=== PATIENT | female | born 1945 | race Caucasian/White ===

== ENCOUNTER → 2017-01-31 | Outpatient (CLI) | payer OTHER | LOC: BHFA 14:00 | PROVIDERS: ATTEND Internal Medicine | DX: R09.89 Other specified symptoms and signs involving the circulatory and respiratory systems (principal); I10 Essential (primary) hypertension; E78.5 Hyperlipidemia, unspecified ==

== ENCOUNTER → 2017-02-23 | Outpatient (CLI) | payer OTHER ==
[~2017-02-23] MED LIST: GADOBUTROL 10 ML VIAL IVP ONE
== END ==
LOC: FIMAGING 11:59
PROVIDERS: ATTEND Internal Medicine Cardiovascular Disease
DX: I65.23 Occlusion and stenosis of bilateral carotid arteries (principal); N18.9 Chronic kidney disease, unspecified; R93.8 Abnormal findings on diagnostic imaging of other specified body structures
CPT/HCPCS: 70548; A9585

== ENCOUNTER → 2017-05-02 | Outpatient (CLI) | payer OTHER | LOC: FIMAGING 14:57 | PROVIDERS: ATTEND Family Medicine | DX: Z12.31 Encounter for screening mammogram for malignant neoplasm of breast (principal) | CPT/HCPCS: G0202 ==

== ENCOUNTER → 2017-05-10 | Outpatient (CLI) | payer OTHER | LOC: BHFA 10:00 | PROVIDERS: ATTEND Internal Medicine Cardiovascular Disease | DX: R06.02 Shortness of breath (principal); I73.9 Peripheral vascular disease, unspecified ==

== ENCOUNTER → 2017-06-29 | Outpatient (CLI) | payer OTHER | LOC: BHFA 09:30 | PROVIDERS: ATTEND Internal Medicine Cardiovascular Disease | DX: R06.02 Shortness of breath (principal); I73.9 Peripheral vascular disease, unspecified | CPT/HCPCS: 78452; 93017; A9500 ==

== ENCOUNTER → 2018-01-19 | Outpatient (CLI) | payer OTHER | LOC: FIMAGING 10:31 | PROVIDERS: ATTEND Surgery | DX: E21.0 Primary hyperparathyroidism (principal) | CPT/HCPCS: 78070; A9500; A9516 ==

== ENCOUNTER → 2018-05-04 | Outpatient (CLI) | payer OTHER | LOC: FIMAGING 09:36 | PROVIDERS: ATTEND Family Medicine | DX: Z12.31 Encounter for screening mammogram for malignant neoplasm of breast (principal) ==

== ENCOUNTER 2018-07-22 17:02 | Emergency (ER) | payer OTHER ==
--- NOTE | 2018-07-22 17:42 | EDPHY ---
H & P Time Seen by Provider: 07/22/18 17:35 HPI/ROS: Chief complaint. Abdomen and back pain HPI. Patient is 72-year-old female who has had several days of pain in the left lower extremity. It initially started in thigh down to her dorsum of her left foot. It now radiates to the left hip and left back in the lumbar area. Symptoms initially began July 12. She feels she has some leg weakness with standing. Her leg occasional Ifeanyi feels like it throbs. However she has no swelling. She has no chest pain or shortness of breath. She has inadequate relief with Tylenol. She has some low back pain when she rolls over in bed. No fever. No abdominal pain. Slight URI symptoms. No urinary symptoms. Patient had a kidney transplant in February 2015. No bowel or bladder symptoms ROS 10 systems were reviewed and negative with the exception of the elements mentioned in the history of present illness Past Medical/Surgical History: Hypertension, dyslipidemia, reactive airway disease, kidney disease status post kidney transplant, leg cramps, diverticulosis Social History: Divorce, nonsmoker, no alcohol Smoking Status: Former smoker Physical Exam: General Appearance: Alert well-developed female mild distress vital signs are stable Eyes: Pupils equal and round no pallor or injection. ENT, Mouth: Mucous membranes are moist. Respiratory: There are no retractions, lungs are clear to auscultation. Cardiovascular: Regular rate and rhythm. Gastrointestinal: Abdomen is soft and nontender, no masses, bowel sounds normal. Neurological: Awake and alert, sensory and motor exams grossly normal. Straight leg raising is normal at 30 degrees bilaterally. Deep tendon reflexes are symmetrical. Great toe strength is normal Skin: Warm and dry, no rashes. Musculoskeletal: Neck is supple nontender. Mild tenderness to the left-sided lumbar spine and left buttock. No evidence of surface trauma. No tenderness over the lumbar spine. Extremities symmetrical, full range of motion. No swelling. Pulses are symmetrical Psychiatric: Patient is oriented X 3, there is no agitation. Constitutional: Initial Vital Signs Temperature (C) 37.1 C 07/22/18 17:18 Heart Rate 84 07/22/18 17:18 Respiratory Rate 16 07/22/18 17:18 Blood Pressure 131/66 H 07/22/18 17:18 O2 Sat (%) 94 07/22/18 17:18 O2 Delivery Mode Room Air Allergies/Adverse Reactions: Metronidazole HCl [From Flagyl] Allergy (Mild, Verified 07/22/18 17:23) NAUSEA codeine Allergy (Verified 07/22/18 17:23) Sulfa (Sulfonamide Antibiotics) Allergy (Verified 07/22/18 17:23) Home Medications: Medication Instructions Recorded Acetaminophen [Tylenol ES 500 mg 500 mg PO Q6 PRN 06/23/15 (*)] Albuterol [Proventil Inhaler HFA 2 puffs IH Q4 PRN 06/23/15 (*)] Atorvastatin Calcium [Lipitor 40 40 mg PO HS 06/23/15 mg (*)] Bifidobacterium Infantis [Align] 4 mg PO DAILY 06/23/15 Cholecalciferol Vit D3 [Vitamin D3 2,000 units PO DAILY 06/23/15 2000 units] Dapsone [Dapsone 100 mg (*)] 100 mg PO DAILY 06/23/15 Multivitamins [Multivitamin (*)] 1 each PO DAILY 06/23/15 Mycophenolate Sodium [Myfortic] 360 mg PO DAILY@08 06/23/15 Mycophenolate Sodium [Myfortic] 720 mg PO DAILY@20 06/23/15 [place]-3 Ethyl Est-Lovaza [Lovaza 1 1 gm PO DAILY 06/23/15 gm (*)] Tacrolimus 1 mg PO DAILY 06/23/15 Tacrolimus 2 mg PO HS 06/23/15 predniSONE 5 mg PO DAILY 06/23/15 Cefdinir [Omnicef (*)] 300 mg PO BID #10 cap 06/29/15 Doxycycline Hyclate [Vibramycin 100 mg PO BID #11 capsule 06/29/15 100 MG (*)] Cephalexin [Keflex (*)] 500 mg PO TID #17 cap 07/22/18 Hydrocodone/APAP 5/325 [Tony 1 each PO Q4-6PRN PRN #10 tab 07/22/18 5/325 (*)] Medical Decision Making - Diagnostics Imaging Results: Imaging Impressions Lumbar Spine MRI 07/22/18 17:57 Impression: 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 Level of most severe neural foraminal narrowing is at L5-S1 with severe bilateral neural foraminal narrowing, left greater than right. Levels of more moderate central spinal canal or neural foraminal narrowing are at L3-L4 and L4- L5. Please see detailed description by level above. Results called and discussed with Cuauhtemoc Wu MD on July 22, 2018 at 1852 hours. MRI shows no evidence of cauda equina syndrome. She does have some bulging discs and some neuroforaminal stenosis. Findings appear to be by necessarily focal to the left side. Procedures: IV normal saline Urine sent for culture sensitivity Take home meds hydrocodone and cephalexin ED Course/Re-evaluation: Re-evaluation 7:15 p.m. Patient and I discussed laboratory evaluation an MRI results. She and I discussed treatment plan including criteria for return importance of follow-up and further evaluation. She expresses understanding and agreement Differential Diagnosis: Certainly her leg pain and low back pain sound like sciatica. No significant left-sided findings but findings are more bilateral. She does have a urinary tract infection. She has had a kidney transplant but has completely normal kidney function. There is no evidence for cauda equina syndrome. - Data Points Laboratory Results: Laboratory Results 07/22/18 18:28 07/22/18 18:28 07/22/18 07/22/18 07/22/18 19:30 18:28 18:28 WBC 9.62 10^3/uL H 10^3/uL (3.80-9.50) RBC 4.49 10^6/uL 10^6/uL (4.18-5.33) Hgb 14.0 g/dL g/dL (12.6-16.3) Hct 42.2 % % (38.0-47.0) MCV 94.0 fL fL (81.5-99.8) MCH 31.2 pg pg (27.9-34.1) MCHC 33.2 g/dL g/dL (32.4-36.7) RDW 13.2 % % (11.5-15.2) Plt Count 223 10^3/uL 10^3/uL (150-400) MPV 10.2 fL fL (8.7-11.7) Neut % (Auto) 80.2 % H % (39.3-74.2) Lymph % (Auto) 10.5 % L % (15.0-45.0) [place] % (Auto) 8.4 % % (4.5-13.0) Eos % (Auto) 0.2 % L % (0.6-7.6) Baso % (Auto) 0.3 % % (0.3-1.7) Nucleat RBC Rel Count 0.0 % % (0.0-0.2) Absolute Neuts (auto) 7.71 10^3/uL H 10^3/uL (1.70-6.50) Absolute Lymphs (auto) 1.01 10^3/uL 10^3/uL (1.00-3.00) Absolute Monos (auto) 0.81 10^3/uL H 10^3/uL (0.30-0.80) Absolute Eos (auto) 0.02 10^3/uL L 10^3/uL (0.03-0.40) Absolute Basos (auto) 0.03 10^3/uL 10^3/uL (0.02-0.10) Absolute Nucleated RBC 0.00 10^3/uL 10^3/uL (0-0.01) Immature Gran % 0.4 % % (0.0-1.1) Immature Gran # 0.04 10^3/uL 10^3/uL (0.00-0.10) Sodium 136 mEq/L mEq/L (135-145) Potassium 4.4 mEq/L mEq/L (3.5-5.2) Chloride 105 mEq/L mEq/L (97-110) Carbon Dioxide 24 mEq/l mEq/l (22-31) Anion Gap 7 mEq/L mEq/L (6-14) BUN 15 mg/dL mg/dL (7-23) Creatinine 0.8 mg/dL mg/dL (0.6-1.0) Estimated GFR > 60 Glucose 117 mg/dL H mg/dL (70-100) Calcium 10.5 mg/dL H mg/dL (8.5-10.4) Urine Color YELLOW Urine Appearance HAZY Urine pH 5.0 (5.0-7.5) Ur Specific [place] 1.024 (1.002-1.030) Urine Protein NEGATIVE (NEGATIVE) Urine Ketones NEGATIVE (NEGATIVE) Urine Blood 1+ H (NEGATIVE) Urine Nitrate NEGATIVE (NEGATIVE) Urine Bilirubin NEGATIVE (NEGATIVE) Urine Urobilinogen NEGATIVE EU EU (0.2-1.0) Ur Leukocyte Esterase 2+ H (NEGATIVE) Urine RBC 15-25 /hpf H /hpf (0-3) Urine WBC 15-25 /hpf H /hpf (0-3) Ur Epithelial Cells TRACE /lpf /lpf (NONE-1+) Urine Mucus TRACE /lpf /lpf (NONE-1+) Urine Glucose NEGATIVE (NEGATIVE) Departure - Departure Disposition: Home, Routine, Self-Care Clinical Impression: Sciatica Qualifiers: Laterality: left Qualified Code(s): M54.32 - Sciatica, left side Urinary tract infection Qualifiers: Urinary tract infection type: site unspecified Hematuria presence: with hematuria Qualified Code(s): N39.0 - Urinary tract infection, site not specified ; R31.9 - Hematuria, unspecified; R31.9 - Hematuria, unspecified Condition: Good Instructions: Sciatica (ED) Additional Instructions: Drink plenty of fluids and stay hydrated Cephalexin 1 pill 3 times daily for 1 week Tylenol or hydrocodone as needed for back and leg pain. Hydrocodone dose is 1 pill every 4-6 hours as needed for pain Return for leg weakness, bowel or bladder symptoms Re-evaluation by Dr. Nicholson in 2-3 days. Follow-up with Neurosurgery for your back Referrals: Sheila Nicholson MD [Primary Care Provider] - 2-3 days, call for appt. Reji Griffin MD [Medical Doctor] - 2-3 days, call for appt. Prescriptions: Cephalexin [Keflex (*)] 500 mg PO TID #17 cap Hydrocodone/APAP 5/325 [Tony 5/325 (*)] 1 each PO Q4-6PRN PRN #10 tab PRN Reason: Pain, Moderate
[2018-07-22 18:50] LABS: PLATELET COUNT 223 10^3/uL (150-400)
[2018-07-22] MEDS ORDERED: HYDROCOD/APAP 5/325 PREPACK#6 BTL TAKEHOME ONE (20:05)
[2018-07-22] MEDS ORDERED: CEPHALEXIN 500MG PREPACK#4 BTL TAKEHOME ONE (20:05)
[2018-07-22 20:12] VITALS: BP 113/74
== END 2018-07-22 20:33 | disposition home or self-care (01) ==
DX: M54.32 Sciatica, left side (principal); N30.01 Acute cystitis with hematuria; Z88.2 Allergy status to sulfonamides; Z87.891 Personal history of nicotine dependence